=== PATIENT | male | born 1970 | race Caucasian/White ===

== ENCOUNTER 2019-02-26 18:24 | Inpatient (IN) | payer OTHER ==
[2019-02-26] MEDS ORDERED: ASPIRIN 81 MG CHEWABLE TABLETS PO ONE (18:27)
--- NOTE | 2019-02-26 18:27 | PDOC ---
Rapid Medical Evaluation Time Seen by Provider: 02/26/19 18:26 Medical Evaluation: 02/26/19 18:26 HPI: CP and SOB since last night PE: No gross deficits ORDERS: Cardiac w/u Discharge Disposition - Diagnosis Chest pain - Referrals - Patient Instructions - Post Discharge Activity
[2019-02-26 19:06] LABS: BASO % 0.4 % (0-2.0); EOS % 1.3 % (0-4.5); HEMOGLOBIN 15.7 GM/dL (11.7-16.9); LYMPH % 23.1 % (8-40); MCH 30.3 pg (25.7-33.7); MCHC 33.4 g/dl (32.0-35.9); MEAN CELL VOLUME 90.8 fl (80-96); MONO % 9.8 % (3.8-10.2); NEUT % 65.4 % (42.8-82.8); PLATELET COUNT 223 K/MM3 (134-434); RBC 5.18 M/mm3 (4.00-5.60); RDW 12.6 % (11.9-15.9); WHITE BLOOD COUNT 9.4 K/mm3 (4.0-10.0)
[2019-02-26] MEDS ORDERED: ASPIRIN 81 MG CHEWABLE TABLETS ONE (19:17)
[2019-02-26 19:37] LABS: ALBUMIN 4.2 g/dl (3.4-5.0); ALK PHOS 111 U/L (45-117); ANION GAP 9 MMOL/L (8-16); BILIRUBIN,TOTAL 0.3 mg/dL (0.2-1); BLOOD UREA NITROGEN 20.6 mg/dL (7-18); CALCIUM 9.1 mg/dL (8.5-10.1); CHLORIDE 100 mmol/L (98-107); CO2 26 mmol/L (21-32); GLUCOSE,RANDOM 286 mg/dL (74-106); POTASSIUM 4.3 mmol/L (3.5-5.1); SGOT/AST 28 U/L (15-37); SGPT/ALT 70 U/L (13-61); SODIUM 135 mmol/L (136-145)
--- NOTE | 2019-02-26 19:45 | PDOC ---
Attending Attestation - Resident Resident Name: Emma Cook - ED Attending Attestation I have performed the following: I have examined & evaluated the patient, The case was reviewed & discussed with the resident, I agree w/resident's findings & plan - Medical Decision Making 02/26/19 21:35 CXR normal; EKG NSR; with PVCs 02/26/19 21:37 Heart Score/ECG Review - History History: Moderately suspicious - Electrocardiogram EKG: Normal - Age Age: 45-65 - Risk Factors Risk Factors Heart Score: Yes Hx Hypertension, Yes Hx Diabetes, Yes Positive family hx of cardiac disease, Yes Hx Obesity Based on the list above the patient has:: >/=3 risk factors or Hx atherosclerotic disease - Troponin Troponin: </= normal limit - Score Heart Score - Total: 4
--- NOTE | 2019-02-26 21:20 | PDOC ---
Attending Attestation - ED Attending Attestation I have performed the following: I have examined & evaluated the patient, The case was reviewed & discussed with the resident, I agree w/resident's findings & plan
--- NOTE | 2019-02-26 23:15 | HP ---
CHIEF COMPLAINT: Chest pain PCP: Adeline Membreno HISTORY OF PRESENT ILLNESS: Patient is a 48 year old male with history of hypertension hyperlipidemia, diabetes mellitus (non insulin dependent), cervical osteoarthritis presents with complaint of chest pressure that is right sided and radiates up to his neck. Endorses symptoms began yesterday evening while he was resting in bed. Admits associated palpitations. Denies associated shortness of breath. Chest pressure not associated with deep breaths. Further, endorses separate sharper, right sided chest pressure that radiates up his neck. Denies prior occurrence of similar symptoms. Denies syncope, trauma, subjective fevers, chills, shortness of breath, nausea, vomiting. ER course was notable for: (1) EKG reveals sinus tahycardia with premature supraventricular complexes, at 108BPM. (2) Initial troponin 0,02 (3) Recent Travel: PAST MEDICAL HISTORY: hypertension hyperlipidemia, diabetes mellitus, cervical osteoarthritis PAST SURGICAL HISTORY: cervical spine surgery (4 years ago), appendectomy 20 years ago, ?melanoma removal. FAMILY HISTORY -Father from [place] in his 40s -Mother- stroke Social History: [place], independent in activities of daily living. Smoking: former smoker; quit 8 years ago. 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 Absent: syncope, palpitations, irregular heart rate, lightheadedness, peripheral edema RESPIRATORY: Absent: cough, shortness of breath, dyspnea with exertion, orthopnea, wheezing, stridor, hemoptysis GASTROINTESTINAL: Absent: abdominal pain, abdominal distension, nausea, vomiting, diarrhea, constipation, melena, hematochezia GENITOURINARY: Absent: dysuria, frequency, urgency, hesitancy, hematuria, flank pain, genital pain MUSCULOSKELETAL: Absent: myalgia, arthralgia, joint swelling, back pain, neck pain SKIN: Absent: rash, itching, pallor HEMATOLOGIC/IMMUNOLOGIC: Absent: easy bleeding, easy bruising, lymphadenopathy, frequent infections ENDOCRINE: Absent: unexplained weight gain, unexplained weight loss, heat intolerance, cold intolerance NEUROLOGIC: Absent: headache, focal weakness or paresthesias, dizziness, unsteady gait, seizure, mental status changes, bladder or bowel incontinence PSYCHIATRIC: Absent: anxiety, depression, suicidal or homicidal ideation, hallucinations. PHYSICAL EXAMINATION Vital Signs - 24 hr 02/26/19 18:25 Temperature 98.5 F Pulse Rate 100 H Respiratory 18 Rate Blood Pressure 179/90 H O2 Sat by Pulse 99 Oximetry (%) GENERAL: Awake, alert, and fully oriented, in no acute distress. HEAD: Normal with no signs of trauma. EYES: Pupils equal, round and reactive to light, extraocular movements intact, sclera anicteric, conjunctiva clear. No lid lag. EARS, NOSE, THROAT: Ears normal, nares patent, oropharynx clear without exudates. Moist mucous membranes. NECK: Normal range of motion, supple without lymphadenopathy, JVD, or masses. LUNGS: Breath sounds equal, clear to auscultation bilaterally. No wheezes, and no crackles. No accessory muscle use. HEART: Regular rate and rhythm, normal S1 and S2 without murmur, rub or gallop. ABDOMEN: Obese abdomen. Soft, not distended. Tender to deep palpation at epigastrum. Normoactive bowel sounds, no guarding, no rebound, no masses. MUSCULOSKELETAL: Normal range of motion at all joints. No bony deformities or tenderness. No CVA tenderness. EXTREMITIES: 2+ pulses, warm, well-perfused. No cyanosis. No clubbing. No peripheral edema. NEUROLOGICAL: Cranial nerves II-XII intact. Normal speech. Normal gait. PSYCHIATRIC: Cooperative. Good eye contact. Appropriate mood and affect. SKIN: Warm, dry, normal turgor, no rashes or lesions noted, normal capillary refill. Laboratory Results - last 24 hr 02/26/19 02/26/19 02/26/19 18:37 18:37 18:37 WBC 9.4 RBC 5.18 Hgb 15.7 Hct 47.0 MCV 90.8 MCH 30.3 MCHC 33.4 RDW 12.6 Plt Count 223 MPV 10.0 Absolute Neuts (auto) 6.1 Neutrophils % 65.4 Lymphocytes % 23.1 Monocytes % 9.8 Eosinophils % 1.3 Basophils % 0.4 Nucleated RBC % 0 Sodium 135 L Potassium 4.3 Chloride 100 Carbon Dioxide 26 Anion Gap 9 BUN 20.6 H Creatinine 1.0 Est GFR (CKD-EPI)AfAm 101.26 Est GFR (CKD-EPI)NonAf 87.37 Random Glucose 286 H Calcium 9.1 Magnesium 2.0 Total Bilirubin 0.3 AST 28 ALT 70 H Alkaline Phosphatase 111 Creatine Kinase 205 Creatine Kinase Index 1.1 CK-MB (CK-2) 2.3 Troponin I < 0.02 Total Protein 7.0 Albumin 4.2 ASSESSMENT/PLAN: Patient is a 48 year old male with history of hypertension hyperlipidemia, diabetes mellitus (non insulin dependent), cervical osteoarthritis presents with complaint of chest pressure. Unstable angina -Will evaluate for ACS; EKG reveals sinus tahycardia with premature supraventricular complexes, at 108BPM. -Initial troponin 0,02. Will trend -Patient loaded with Aspirin in ED. Will load Plavix 300mg PO, and anticoagulate with Lovenox 100mg Q12H subq STAT -Follow D-Dimer. Low WELLS score -Duplex bilateral lower extremities to evaluate for DVT. Patient did endorse lower extremity cramping earlier today. -Cardiac telemetry monitoring -Cardiac transthoracic ECHO -Case discussed with Dr. Bazan (covering for Dr Villar) recommendations appreciated. -Continue home Aspirin 81mg PO daily Hypertension -Continue home Valsartan, Amlodipine Hyperlipidemia -Continue home Atorvastatin. Increased to 40mg PO HS. -Fasting lipid panel Anxiety, depression -Continue home Sertaline Diabetes mellitus -HbA1c -Hold home hypoglycemics. Initiate Insulin sliding scale -Fingerstick blood glucose monitoring. FEN -IV normal saline at 100mL/ hour -Follow BMP -NPO, pending cardiology evaluation Prophylaxis -Therapeutic dose Lovenox 100mg subq Q12 hours Disposition Admit to Telemetry floor Visit type - Emergency Visit Emergency Visit: Yes ED Registration Date: 02/27/19 Care time: The patient presented to the Emergency Department on the above date and was hospitalized for further evaluation of their emergent condition. - New Patient This patient is new to me today: Yes Date on this admission: 02/27/19 - Critical Care Critical Care patient: No ATTENDING PHYSICIAN STATEMENT I saw and evaluated the patient. I reviewed the resident's note and discussed the case with the resident. I agree with the resident's findings and plan as documented. SUBJECTIVE: OBJECTIVE: ASSESSMENT AND PLAN:
[2019-02-26] MEDS ORDERED: SODIUM CHLORIDE 1,000 ML IV SCH (23:30)
[2019-02-26] MEDS ORDERED: INSULIN (NOVOLOG) ASPART 100 UNITS/ML 10ML VIAL ONE ×2 (23:44→23:49)
[2019-02-27] MEDS: INSULIN SLIDING SCALE (NOVOLOG) 1 VIAL SQ SCH ×4 (00:19→17:18)
--- NOTE | 2019-02-27 01:14 | PN ---
Teaching Attending Note Name of Resident: Josh Armenta ATTENDING PHYSICIAN STATEMENT I saw and evaluated the patient. I reviewed the resident's note and discussed the case with the resident. I agree with the resident's findings and plan as documented. SUBJECTIVE: 48 year old male with history of hypertension, hyperlipidemia, Uncontrolled diabetes mellitus presents, Positive family history of disease in father, complaining of Substernal Chest pain which radiates up to his neck which started 1 day ago when patient was in his bed. Says chest pain is persistent and and has not subsided rates pain as low on pain scale and, substernal. Denied any significant shortness of breath, nausea, or vomiting or trauma to chest. Initial troponin in the emergency room was negative. OBJECTIVE: Last Vital Signs Temp Pulse Resp BP Pulse Ox 98.5 F 100 H 18 179/90 H 99 02/26/19 18:25 02/26/19 18:25 02/26/19 18:25 02/26/19 18:25 02/26/19 18:25 GENERAL: Well developed, well nourished. Awake and alert. No acute distress. HEENT: Normocephalic, atraumatic. PERRLA, EOMI. No conjunctival pallor. Sclera are non- icteric. Moist mucous membranes. Oropharynx is clear. NECK: Supple. Full ROM. No JVD. Carotid pulses 2+ and symmetric, without bruits. No thyromegaly. No lymphadenopathy. CARDIOVASCULAR: Regular rate and rhythm. No murmurs, rubs, or gallops. Distal pulses are 2+ and symmetric. PULMONARY: No evidence of respiratory distress. Lungs clear to auscultation bilaterally. No wheezing, rales or rhonchi. ABDOMINAL: Soft. Non-tender. Non-distended. No rebound or guarding. No organomegaly. Normoactive bowel sounds. MUSCULOSKELETAL Normal range of motion at all joints. No bony deformities or tenderness. No CVA tenderness. EXTREMITIES: No cyanosis. No clubbing. No edema. No calf tenderness. SKIN: Warm and dry. Normal capillary refill. No rashes. No jaundice. PSYCHIATRIC: Cooperative. Good eye contact. Appropriate mood and affect. Abnormal Lab Results 02/26/19 18:37 Sodium 135 L BUN 20.6 H Random Glucose 286 H ALT 70 H Imaging studies reviewed EKG reveals sinus tahycardia with premature supraventricular complexes ASSESSMENT AND PLAN: 48-year-old male with Unstable angina. Troponin was negative, EKG was not suggestive of ischemia. D-dimer was sent and was negative. Admit to telemetry Treat with therapeutic dose of Lovenox, dose of clopidogrel and aspirin Trend troponins Transthoracic echo Cardiology consult #Uncontrolled hypertension Continue with home dose of losartan, amlodipine, titrate as needed to achieve blood pressure control #Diabetes mellitusuncontrolled, significant hyperglycemia is noted NovoLog sliding scale, basal insulin, Lipitor home dose, A1c, diabetic diet #Borderline pseudohyponatremia secondary to hyperglycemia #DVT prophylaxisheparin subcutaneously
--- NOTE | 2019-02-27 01:26 | PDOC ---
History of Present Illness - General Chief Complaint: Chest Pain Stated Complaint: CHEST PAIN Time Seen by Provider: 02/26/19 18:26 - History of Present Illness Initial Comments: 02/27/19 00:54 48 yo M PMH HTN, NIDDM, presenting with chest pain. Reports that it began last night, 3/10, fluttery chest pain, mild SOB. Worsened to 6/10 pain today. Has never had this type of pain before, but notes that his family has cardiac history. His father had a heart attack at 48. Denies abd pain, N/V, diaphoresis, fevers/chills, constipation/diarrhea, CASTILLO. Past History - Past Medical History Allergies/Adverse Reactions: Allergies Allergy/AdvReac Type Severity Reaction Status Date / Time No Known Allergies Allergy Verified 02/26/19 18:28 Home Medications: Ambulatory Orders Amlodipine Besylate 5 mg PO DAILY 02/26/19 Glipizide [Glipizide ER] 5 mg PO DAILY 02/26/19 Metformin HCl [Glucophage] 1,000 mg PO BID 02/26/19 Pioglitazone HCl 15 mg PO DAILY 02/26/19 Sertraline HCl 50 mg PO DAILY 02/26/19 Valsartan 320 mg PO DAILY 02/26/19 Atorvastatin Ca [Lipitor] 20 mg PO HS #30 tablet 03/01/19 COPD: No Diabetes: Yes HTN: Yes - Psycho Social/Smoking Cessation Hx Smoking History: Never smoked Review of Systems - Review of Systems Comments:: 02/27/19 02:21 GENERAL/CONSTITUTIONAL: No fever or chills. No weakness. HEAD, EYES, EARS, NOSE AND THROAT: No change in vision. No ear pain or discharge. No sore throat. CARDIOVASCULAR: Mild chest pain with shortness of breath. RESPIRATORY: No cough, wheezing, or hemoptysis. GASTROINTESTINAL: No nausea, vomiting, diarrhea or constipation. GENITOURINARY: No dysuria, frequency, or change in urination. MUSCULOSKELETAL: No joint or muscle swelling or pain. No neck or back pain. SKIN: No rash NEUROLOGIC: No headache, vertigo, loss of consciousness, or change in strength/ sensation. ENDOCRINE: No increased thirst. No abnormal weight change. HEMATOLOGIC/LYMPHATIC: No anemia, easy bleeding, or history of blood clots. ALLERGIC/IMMUNOLOGIC: No hives or skin allergy *Physical Exam - Vital Signs Last Vital Signs Temp Pulse Resp BP Pulse Ox 98.5 F 100 H 18 179/90 H 99 02/26/19 18:25 02/26/19 18:25 02/26/19 18:25 02/26/19 18:25 02/26/19 18:25 - Physical Exam 02/27/19 02:21 Gen: well-developed, well-nourished, NAD Neuro: AAOX4, CN II-XII intact, FTN intact, EOMI, PERRLA, 5/5 strength, SILT HEENT: atraumatic, normocephalic, dry mucous membranes Neck: trachea midline, supple CV: regular rate, regular rhythm, no murmurs, rubs, or gallops Pulm: CTA b/l, no wheezing Abd: soft, non-distended, non-tender MSK: full ROM, intact pulses Extr: no edema, no deformities Skin: warm, dry ED Treatment Course - LABORATORY CBC & Chemistry Diagram: 03/01/19 05:30 03/01/19 05:30 - ADDITIONAL ORDERS Additional order review: Laboratory Results 02/26/19 02/26/19 02/26/19 23:32 18:37 18:37 Sodium 135 L Potassium 4.3 Chloride 100 Carbon Dioxide 26 Anion Gap 9 BUN 20.6 H Creatinine 1.0 Est GFR (CKD-EPI)AfAm 101.26 Est GFR (CKD-EPI)NonAf 87.37 POC Glucometer 222 Random Glucose 286 H Calcium 9.1 Magnesium 2.0 Total Bilirubin 0.3 AST 28 ALT 70 H Alkaline Phosphatase 111 Creatine Kinase 205 Creatine Kinase Index 1.1 CK-MB (CK-2) 2.3 Troponin I < 0.02 Total Protein 7.0 Albumin 4.2 02/26/19 02/26/19 23:32 18:37 RBC 5.18 MCV 90.8 MCHC 33.4 RDW 12.6 MPV 10.0 Neutrophils % 65.4 Lymphocytes % 23.1 Monocytes % 9.8 Eosinophils % 1.3 Basophils % 0.4 POC Glucometer 222 - Medications Given in the ED: ED Medications Discontinued Medications Generic Name Dose Route Start Last Admin Trade Name Freq PRN Reason Stop Dose Admin Aspirin 162 mg 02/26/19 18:27 02/26/19 19:20 Asa - PO 02/26/19 18:28 162 mg ONCE ONE Administration Medical Decision Making - Medical Decision Making 02/26/19 Concern for potential ACS. Cardiac workup performed and negative. EKG NSR without ischemic changes. However, considering history and risk factors, will admit to tele obs. Discharge - Discharge Information Problems reviewed: Yes Clinical Impression/Diagnosis: Chest pain Condition: Good Disposition: HOME - Follow up/Referral - Patient Discharge Instructions - Post Discharge Activity
[2019-02-27 01:40] LABS: INR 0.92 (0.83-1.09); PROTHROMBIN TIME (PATIENT) 10.8 SEC (9.7-13.0)
[2019-02-27 01:43] LABS: ACTIVATED PTT 31.3 SECONDS (25.2-36.5)
[2019-02-27] MEDS ORDERED: NITROGLYCERIN SUBLINGUAL 1/150 0.4 MG TAB SL ONE (03:28)
[2019-02-27] MEDS ORDERED: CLOPIDOGREL BISULFATE 300 MG TABLET PO ONE (03:29)
[2019-02-27] MEDS ORDERED: ENOXAPARIN NA (PORCINE) 100 MG/1 ML DISP.SYRIN SQ ONE (03:29)
[2019-02-27 04:31] VITALS: BMI 34.7
[2019-02-27 07:05] LABS: HEMATOCRIT 42.7 % (35.4-49); HEMOGLOBIN 14.4 GM/dL (11.7-16.9); MCH 30.4 pg (25.7-33.7); MCHC 33.7 g/dl (32.0-35.9); MEAN CELL VOLUME 90.3 fl (80-96); MEAN PLT VOLUME 9.7 fl (7.5-11.1); PLATELET COUNT 185 K/MM3 (134-434); RBC 4.73 M/mm3 (4.00-5.60); RDW 12.7 % (11.9-15.9); WHITE BLOOD COUNT 6.1 K/mm3 (4.0-10.0)
[2019-02-27 07:18] LABS: ALBUMIN 3.7 g/dl (3.4-5.0); BILIRUBIN,TOTAL 0.6 mg/dL (0.2-1); BLOOD UREA NITROGEN 22.3 mg/dL (7-18); CALCIUM 8.5 mg/dL (8.5-10.1); CREATININE 0.7 mg/dL (0.55-1.3); MAGNESIUM 1.9 mg/dL (1.8-2.4); PHOSPHOROUS 4.8 mg/dL (2.5-4.9); POTASSIUM 3.9 mmol/L (3.5-5.1); TOT PROT 6.2 g/dl (6.4-8.2)
[2019-02-27 07:26] LABS: CHOLESTEROL 145 mg/dL (50-200); HDL CHOLESTEROL 34 mg/dL (40-60); LDL CHOLESTEROL (ONLY SJRH) 87 mg/dL (5-100); TRIGLYCERIDES 194 mg/dL (0-150)
[2019-02-27] MEDS ORDERED: PNEUMOC 13-VAL CONJ-DIP CRM/PF 0.5 ML DISP.SYRIN IM ONE (08:00)
[2019-02-27] MEDS: VALSARTAN 160 MG TABLET (UD) PO SCH (09:02)
[2019-02-27] MEDS: amLODIPine BESYLATE 5 MG TABLET (FP) PO SCH (09:02)
[2019-02-27] MEDS: SERTRALINE HCL 50 MG TABLET (FP) PO SCH (09:03)
[2019-02-27] MEDS: ASPIRIN COATED 81 MG TABLET.EC PO SCH (09:03)
--- NOTE | 2019-02-27 09:16 | PN ---
Physical Exam: SUBJECTIVE: Patient seen and examined. He has no complaints. He denies CP, palpitations, SOB. OBJECTIVE: Vital Signs Period Temp Pulse Resp BP Sys/Herron Pulse Ox Last 24 Hr 97.8 F-98.5 F 60-100 18-18 106-179/59-90 95-99 GENERAL: The patient is awake, alert, and fully oriented, in no acute distress. LUNGS: Breath sounds equal, clear to auscultation bilaterally, no wheezes, no crackles, no accessory muscle use. HEART: Regular rate and rhythm, S1, S2 without murmur, rub or gallop. ABDOMEN: Obese, soft, nontender, nondistended, normoactive bowel sounds, no guarding, no rebound, no hepatosplenomegaly, no masses. EXTREMITIES: 2+ pulses, warm, well-perfused, no edema. Laboratory Results - last 24 hr 02/26/19 02/26/19 02/26/19 18:37 18:37 18:37 WBC 9.4 RBC 5.18 Hgb 15.7 Hct 47.0 MCV 90.8 MCH 30.3 MCHC 33.4 RDW 12.6 Plt Count 223 MPV 10.0 Absolute Neuts (auto) 6.1 Neutrophils % 65.4 Lymphocytes % 23.1 Monocytes % 9.8 Eosinophils % 1.3 Basophils % 0.4 Nucleated RBC % 0 PT with INR INR PTT (Actin FS) D-Dimer Sodium 135 L Potassium 4.3 Chloride 100 Carbon Dioxide 26 Anion Gap 9 BUN 20.6 H Creatinine 1.0 Est GFR (CKD-EPI)AfAm 101.26 Est GFR (CKD-EPI)NonAf 87.37 POC Glucometer Random Glucose 286 H Hemoglobin A1c % Calcium 9.1 Phosphorus Magnesium 2.0 Total Bilirubin 0.3 AST 28 ALT 70 H Alkaline Phosphatase 111 Creatine Kinase 205 Creatine Kinase Index 1.1 CK-MB (CK-2) 2.3 Troponin I < 0.02 B-Natriuretic Peptide Total Protein 7.0 Albumin 4.2 Triglycerides Cholesterol Total LDL Cholesterol HDL Cholesterol TSH Thyroxine (T4) 02/26/19 02/27/19 02/27/19 23:32 00:30 00:30 WBC RBC Hgb Hct MCV MCH MCHC RDW Plt Count MPV Absolute Neuts (auto) Neutrophils % Lymphocytes % Monocytes % Eosinophils % Basophils % Nucleated RBC % PT with INR 10.80 INR 0.92 PTT (Actin FS) 31.3 D-Dimer Sodium Potassium Chloride Carbon Dioxide Anion Gap BUN Creatinine Est GFR (CKD-EPI)AfAm Est GFR (CKD-EPI)NonAf POC Glucometer 222 Random Glucose Hemoglobin A1c % Calcium Phosphorus Magnesium Total Bilirubin AST ALT Alkaline Phosphatase Creatine Kinase Creatine Kinase Index CK-MB (CK-2) Troponin I < 0.02 B-Natriuretic Peptide Total Protein Albumin Triglycerides Cholesterol Total LDL Cholesterol HDL Cholesterol TSH Thyroxine (T4) 02/27/19 02/27/19 02/27/19 00:30 05:45 05:45 WBC 6.1 RBC 4.73 Hgb 14.4 Hct 42.7 MCV 90.3 MCH 30.4 MCHC 33.7 RDW 12.7 Plt Count 185 MPV 9.7 Absolute Neuts (auto) Neutrophils % Lymphocytes % Monocytes % Eosinophils % Basophils % Nucleated RBC % PT with INR INR PTT (Actin FS) D-Dimer < 215 Sodium 137 Potassium 3.9 Chloride 103 Carbon Dioxide 26 Anion Gap 8 BUN 22.3 H Creatinine 0.7 Est GFR (CKD-EPI)AfAm 127.53 Est GFR (CKD-EPI)NonAf 110.04 POC Glucometer Random Glucose 219 H Hemoglobin A1c % Calcium 8.5 Phosphorus 4.8 Magnesium 1.9 Total Bilirubin 0.6 AST 28 ALT 60 Alkaline Phosphatase 74 Creatine Kinase Creatine Kinase Index CK-MB (CK-2) Troponin I B-Natriuretic Peptide Total Protein 6.2 L Albumin 3.7 Triglycerides Cholesterol Total LDL Cholesterol HDL Cholesterol TSH 2.34 Thyroxine (T4) 7.9 02/27/19 02/27/19 02/27/19 05:45 05:45 05:45 WBC RBC Hgb Hct MCV MCH MCHC RDW Plt Count MPV Absolute Neuts (auto) Neutrophils % Lymphocytes % Monocytes % Eosinophils % Basophils % Nucleated RBC % PT with INR INR PTT (Actin FS) D-Dimer Sodium Potassium Chloride Carbon Dioxide Anion Gap BUN Creatinine Est GFR (CKD-EPI)AfAm Est GFR (CKD-EPI)NonAf POC Glucometer Random Glucose Hemoglobin A1c % 9.4 H Calcium Phosphorus Magnesium Total Bilirubin AST ALT Alkaline Phosphatase Creatine Kinase 139 Creatine Kinase Index CK-MB (CK-2) Troponin I < 0.02 B-Natriuretic Peptide 19.9 Total Protein Albumin Triglycerides 194 H Cholesterol 145 Total LDL Cholesterol 87 HDL Cholesterol 34 L TSH Thyroxine (T4) 02/27/19 06:12 WBC RBC Hgb Hct MCV MCH MCHC RDW Plt Count MPV Absolute Neuts (auto) Neutrophils % Lymphocytes % Monocytes % Eosinophils % Basophils % Nucleated RBC % PT with INR INR PTT (Actin FS) D-Dimer Sodium Potassium Chloride Carbon Dioxide Anion Gap BUN Creatinine Est GFR (CKD-EPI)AfAm Est GFR (CKD-EPI)NonAf POC Glucometer 210 Random Glucose Hemoglobin A1c % Calcium Phosphorus Magnesium Total Bilirubin AST ALT Alkaline Phosphatase Creatine Kinase Creatine Kinase Index CK-MB (CK-2) Troponin I B-Natriuretic Peptide Total Protein Albumin Triglycerides Cholesterol Total LDL Cholesterol HDL Cholesterol TSH Thyroxine (T4) Active Medications Generic Name Dose Route Start Last Admin Trade Name Freq PRN Reason Stop Dose Admin Amlodipine Besylate 5 mg 02/27/19 10:00 Norvasc - PO DAILY [facility] Aspirin 81 mg 02/27/19 10:00 Ecotrin - PO DAILY [facility] Atorvastatin Calcium 40 mg 02/27/19 22:00 Lipitor - PO HS [facility] Clopidogrel Bisulfate 75 mg 02/27/19 10:00 Plavix - PO DAILY [facility] Enoxaparin Sodium 100 mg 02/27/19 14:00 Lovenox - SQ BID [facility] Sodium Chloride 1,000 mls @ 83 mls/hr 02/26/19 23:30 02/27/19 00:45 Normal Saline - IV 83 mls/hr ASDIR [facility] Administration Insulin Aspart 1 vial 02/26/19 23:30 02/27/19 06:17 Novolog Vial Sliding Scale - SQ Not Given TIDAC [facility] Protocol Pneumococcal Polyvalent Vaccine 0.5 ml 02/27/19 10:00 Pneumovax - IM 02/27/19 10:01 .ONCE ONE Sertraline HCl 50 mg 02/27/19 10:00 Zoloft - PO DAILY [facility] Valsartan 320 mg 02/27/19 10:00 Diovan - PO DAILY [facility] ASSESSMENT/PLAN: This is a 48 year old man with a history of HTN, hyperlipidemia, type 2 DM, depression, anxiety, cervical degenerative disease who presented to the ED with chest pressure. 1. Chest pain - Troponin negative x 3 - D-dimer negative - Venous dopplers of legs negative for DVT - Started on aspirin, Plavix, Lovenox - Will discontinue Lovenox - Continue Lipitor - Await cardiology evaluation and echo 2. HTN - Continue Norvasc, Diovan 3. Hyperlipidemia - Continue Lipitor 4. Type 2 DM - Metformin, glipizide, Actos held - Continue Novolog sliding scale 5. Depression and anxiety - Continue Zoloft Visit type - Emergency Visit Emergency Visit: Yes ED Registration Date: 02/27/19 Care time: The patient presented to the Emergency Department on the above date and was hospitalized for further evaluation of their emergent condition. - New Patient This patient is new to me today: Yes Date on this admission: 02/27/19 - Critical Care Critical Care patient: No - Discharge Referral Referred to [facility] No
--- NOTE | 2019-02-27 09:49 | EKG ---
Test Reason : Blood Pressure : / mmHG Vent. Rate : 108 BPM Atrial Rate : 108 BPM P-R Int : 128 ms QRS Dur : 094 ms QT Int : 340 ms P-R-T Axes : 065 060 044 degrees QTc Int : 455 ms SINUS TACHYCARDIA WITH PREMATURE SUPRAVENTRICULAR COMPLEXES AND WITH OCCASIONAL PREMATURE VENTRICULAR COMPLEXES POSSIBLE LEFT ATRIAL ENLARGEMENT BORDERLINE ECG NO PREVIOUS ECGS AVAILABLE Confirmed by RAINA ZENG MD ([id number]) on 02/27/2019 9:49:18 AM Referred By: Confirmed By:RAINA ZENG MD
--- NOTE | 2019-02-27 09:55 | EKG ---
Test Reason : Blood Pressure : / mmHG Vent. Rate : 065 BPM Atrial Rate : 065 BPM P-R Int : 142 ms QRS Dur : 096 ms QT Int : 400 ms P-R-T Axes : 067 048 054 degrees QTc Int : 416 ms NORMAL SINUS RHYTHM NORMAL ECG WHEN COMPARED WITH ECG OF 26-FEB-2019 18:31, PREMATURE VENTRICULAR COMPLEXES ARE NO LONGER PRESENT PREMATURE SUPRAVENTRICULAR COMPLEXES ARE NO LONGER PRESENT VENT. RATE HAS DECREASED BY 43 BPM Confirmed by RAINA ZENG MD ([id number]) on 02/27/2019 9:54:42 AM Referred By: Mike KINCAID Confirmed By:RAINA ZENG MD
[2019-02-27] MEDS ORDERED: CLOPIDOGREL BISULFATE 75 MG TABLET (FP) PO SCH (10:00)
[2019-02-27] MEDS ORDERED: PNEUMOCOCCAL 23 VACCINE 0.5 ML VIAL IM ONE (10:00)
[2019-02-27] MEDS ORDERED: ENOXAPARIN NA (PORCINE) 40 MG/0.4 ML DISP.SYRIN SQ SCH ×2 (10:00)
--- NOTE | 2019-02-27 13:03 | CON.CARD ---
Consult Consult Specialty:: Cardiology Referred by:: Medicine Reason for Consultation:: chest pain - History of Present Illness Chief Complaint: chest pain History of Present Illness: 48M h/o HTN, HLD, DM, family hx CAD p/w chest pain. Patient of Dr. Villar. Pain ongoing for the last two days, has been constant but a little less today. Not exertional. No dyspnea, orthopnea, edema. - Alcohol/Substance Use Hx Alcohol Use: No - Smoking History Smoking history: Never smoked Home Medications - Allergies Allergies/Adverse Reactions: Allergies Allergy/AdvReac Type Severity Reaction Status Date / Time No Known Allergies Allergy Verified 02/26/19 18:28 - Home Medications Home Medications: Ambulatory Orders Amlodipine Besylate 5 mg PO DAILY 02/26/19 Atorvastatin Ca [Lipitor] 10 mg PO HS 02/26/19 Glipizide [Glipizide ER] 5 mg PO DAILY 02/26/19 Metformin HCl [Glucophage] 1,000 mg PO BID 02/26/19 Pioglitazone HCl 15 mg PO DAILY 02/26/19 Sertraline HCl 50 mg PO DAILY 02/26/19 Valsartan 320 mg PO DAILY 02/26/19 Family Medical History Family Hx Cardiac Disorders: Father Review of Systems - Review of Systems Constitutional: reports: No Symptoms Eyes: reports: No Symptoms HENT: reports: No Symptoms Neck: reports: No Symptoms Cardiovascular: reports: Chest Pain Respiratory: reports: No Symptoms Gastrointestinal: reports: No Symptoms Genitourinary: reports: No Symptoms Musculoskeletal: reports: No Symptoms Integumentary: reports: No Symptoms Neurological: reports: No Symptoms Endocrine: reports: No Symptoms Hematology/Lymphatic: reports: No Symptoms Psychiatric: reports: No Symptoms Vital Signs: Vital Signs Temperature 98.0 F 02/27/19 08:08 Pulse Rate 60 02/27/19 08:08 Respiratory Rate 18 02/27/19 08:08 Blood Pressure 106/59 L 02/27/19 08:08 O2 Sat by Pulse Oximetry (%) 95 02/27/19 08:08 Constitutional: Yes: No Distress, Calm Eyes: Yes: Conjunctiva Clear, EOM Intact HENT: Yes: Atraumatic, Normocephalic Neck: Yes: Supple, Trachea Midline Respiratory: Yes: Regular, CTA Bilaterally Gastrointestinal: Yes: Normal Bowel Sounds, Soft Cardiovascular: Yes: Regular Rate and Rhythm JVD: No Carotid Bruit: No Heart Sounds: Yes: S1, S2 Extremities: No: Cold Edema: No Integumentary: No: Jaundice Neurological: Yes: Alert, Oriented Psychiatric: No: Agitated - Other Data Labs, Other Data: CBC, BMP 02/27/19 05:45 02/27/19 05:45 INR, PTT INR 0.92 (0.83-1.09) 02/27/19 00:30 Troponin, BNP 02/26/19 02/27/19 02/27/19 18:37 00:30 05:45 Troponin I < 0.02 < 0.02 B-Natriuretic Peptide 19.9 02/27/19 05:45 Troponin I < 0.02 B-Natriuretic Peptide Troponin, BNP 02/26/19 02/27/19 02/27/19 18:37 00:30 05:45 Troponin I < 0.02 < 0.02 B-Natriuretic Peptide 19.9 02/27/19 05:45 Troponin I < 0.02 B-Natriuretic Peptide Assessment/Plan EKG 1: sinus tach, PVCs, no ischemic changes EKG 2 : sinus, nl intervals, no ischemic changes tele: sinus, PVCs chest pain - EKG no ischemic changes, trop neg x 2 - less likely ACS, lovenox and clopidogrel dc'ed - continue aspirin, statin - echo and nuclear stress test for further eval given age, risk factors, family hx HTN - improving with home meds DM - manage per primary HLD - cont statin, increased here
[2019-02-27] MEDS ORDERED: ENOXAPARIN NA (PORCINE) 100 MG/1 ML DISP.SYRIN SQ SCH (14:00)
[2019-02-27] MEDS ORDERED: ATORVASTATIN CA 10 MG TABLET (FP) PO SCH (22:00)
[2019-02-27] MEDS: ATORVASTATIN CA 40 MG TABLET (FP) PO SCH (22:26)
[2019-02-28] MEDS: INSULIN SLIDING SCALE (NOVOLOG) 1 VIAL SQ SCH ×3 (06:13→17:23)
[2019-02-28] MEDS: SERTRALINE HCL 50 MG TABLET (FP) PO SCH (09:02)
[2019-02-28] MEDS: amLODIPine BESYLATE 5 MG TABLET (FP) PO SCH (09:02)
[2019-02-28] MEDS: ENOXAPARIN NA (PORCINE) 40 MG/0.4 ML DISP.SYRIN SQ SCH (09:02)
[2019-02-28] MEDS: VALSARTAN 160 MG TABLET (UD) PO SCH (09:02)
[2019-02-28] MEDS: ASPIRIN COATED 81 MG TABLET.EC PO SCH (09:03)
--- NOTE | 2019-02-28 09:06 | PN ---
Teaching Attending Note Name of Resident: Josh Armenta ATTENDING PHYSICIAN STATEMENT I saw and evaluated the patient. I reviewed the resident's note and discussed the case with the resident. I agree with the resident's findings and plan as documented. Seen and examined; please see resident note for further historical information. I personally verified all kerr historical information and exam findings. Personally interpreted all imaging and diagnostics and reviewed appropriate consults. I reviewed all labs and vital signs as per resident note and EMR as documented. I agree with the above assessment and plan unless supplemented by myself in the following. No chest pain, shortness of breath or palpitations noted. Seen by Dr. Bazan yesterday, patient of Dr. Villar. 2 days of chest pain somewhat atypical in nature. Negative troponin x2 and now off Lovenox and clopidogrel while continuing on aspirin and statin. Pending echocardiogram and nuclear stress test given his moderate to high pretest probability secondary to his age, risk factors, and family history. Blood pressure and heart rate remained controlled and he is satting 96% on room air. No issues on telemetry.He is frustrated that the testing cannot be conducted over the weekend and states that he may leave AMA as he wants to close a deal on his house tomorrow. 10 item review of systems completed and is negative aside from history of present illness. VS, labs, imaging reviewed NAD, AAO, resting comfortably in bed. RRR s1/2 no mgr Normal muscle tone, moves all 5 extremities with normal apparent strength Neck is supple, trachea midline, no vishal LN Lungs CTAB with sym expansion NT ND +BS no vishal organomegaly CN2-12 wnl; no FND NC AT EOMI PERRLA Normal mood, appropriate behavior, euthymic affect No skin breakdown or rashes noted EKG from admission reviewed, HI interval is 142, QTc 416 with QRS duration of 09 6 ms. Normal sinus rhythm and normal EKG overall with no ischemic changes compared to the original ER study performed earlier in the day on February 26 No evidence of DVT on the bilateral ultrasound lower extremities. Chest x-ray on admission shows no acute chest pathology with degenerative changes noted alongside lower spinal fusion hardware. Assessment and plan: Patient with moderate to high pretest probability secondary to his risk factors for coronary artery disease presents with chest pain, is pending echocardiogram and nuclear stress test. He is stable on telemetry and remains on the medicine service with cardiology consultation. Problems include: -Acute chest pain, rule out ACS. Follow-up stress test and echocardiogram. EKG , troponins, telemetry negative thus far. Continue on aspirin and statin, no need for Plavix or Lovenox. -Diabetes mellitus, uncontrolled with A1c 9.4%. Suboptimal glucose control ranging from the low to mid 200s overnight and yesterday. We will adjust coverage. -Hypertension, controlled -Hyperlipidemia, triglycerides 194 with HDL low at 34. -Obesity, BMI 34, counseled prior to discharge Full code Disposition is pending the further cardiology testing with echo and nuclear stress test, once this is complete patient will be able to be discharged versus disposition for further procedures/invasive testing.
[2019-02-28] MEDS ORDERED: NITROGLYCERIN SUBLINGUAL 1/150 0.4 MG TAB SL ONE (10:23)
--- NOTE | 2019-02-28 12:22 | PN ---
Progress Note (short form) - Note Progress Note: s: chest pain improving. no dyspnea, dizziness, orthopnea, edema Current Medications Amlodipine Besylate (Norvasc -) 5 mg PO DAILY [facility] Last Admin: 02/28/19 09:02 Dose: 5 mg Aspirin (Ecotrin -) 81 mg PO DAILY [facility] Last Admin: 02/28/19 09:03 Dose: 81 mg Atorvastatin Calcium (Lipitor -) 40 mg PO HS [facility] Last Admin: 02/27/19 22:26 Dose: 40 mg Enoxaparin Sodium (Lovenox -) 40 mg SQ DAILY [facility] Last Admin: 02/28/19 09:02 Dose: 40 mg Insulin Aspart (Novolog Vial Sliding Scale -) 1 vial SQ TIDAC [facility]; Protocol Last Admin: 02/28/19 11:09 Dose: 8 units Sertraline HCl (Zoloft -) 50 mg PO DAILY [facility] Last Admin: 02/28/19 09:02 Dose: 50 mg Valsartan (Diovan -) 320 mg PO DAILY [facility] Last Admin: 02/28/19 09:02 Dose: 320 mg Vital Signs Period Temp Pulse Resp BP Sys/Herron Pulse Ox Last 24 Hr 97.6 F-98.2 F 59-77 18-18 105-127/52-76 96-96 Constitutional: Yes: No Distress, Calm Eyes: Yes: Conjunctiva Clear, EOM Intact HENT: Yes: Atraumatic, Normocephalic Neck: Yes: Supple, Trachea Midline Respiratory: Yes: Regular, CTA Bilaterally Gastrointestinal: Yes: Normal Bowel Sounds, Soft Cardiovascular: Yes: Regular Rate and Rhythm JVD: No Carotid Bruit: No Heart Sounds: Yes: S1, S2 Extremities: No: Cold Edema: No Integumentary: No: Jaundice Neurological: Yes: Alert, Oriented Psychiatric: No: Agitated Assessment/Plan EKG 1: sinus tach, PVCs, no ischemic changes EKG 2 : sinus, nl intervals, no ischemic changes tele: sinus, PVCs chest pain - EKG no ischemic changes, trop neg x 2 - less likely ACS, lovenox and clopidogrel dc'ed - continue aspirin, statin - echo and nuclear stress test for further eval given age, risk factors, family hx HTN - improving with home meds DM - manage per primary HLD - cont statin, increased here
--- NOTE | 2019-02-28 13:16 | PN ---
Physical Exam: SUBJECTIVE: Patient seen and examined at bedside. Admits lingering chest pain, that seems to have resolved with sublingual Nitro x1. OBJECTIVE: Vital Signs Period Temp Pulse Resp BP Sys/Herron Pulse Ox Last 24 Hr 97.6 F-98.2 F 59-77 18-18 105-127/52-76 96-96 GENERAL: Awake, alert, and fully oriented, in no acute distress. HEAD: Normal with no signs of trauma. EYES: Pupils equal, round and reactive to light, extraocular movements intact, sclera anicteric, conjunctiva clear. No lid lag. EARS, NOSE, THROAT: Ears normal, nares patent, oropharynx clear without exudates. Moist mucous membranes. NECK: Normal range of motion, supple without lymphadenopathy, JVD, or masses. LUNGS: Breath sounds equal, clear to auscultation bilaterally. No wheezes, and no crackles. No accessory muscle use. HEART: Regular rate and rhythm, normal S1 and S2 without murmur, rub or gallop. ABDOMEN: Obese abdomen. Soft, not distended. Tender to deep palpation at epigastrum. Normoactive bowel sounds, no guarding, no rebound, no masses. MUSCULOSKELETAL: Normal range of motion at all joints. No bony deformities or tenderness. No CVA tenderness. EXTREMITIES: 2+ pulses, warm, well-perfused. No cyanosis. No clubbing. No peripheral edema. NEUROLOGICAL: Cranial nerves II-XII intact. Normal speech. Normal gait. PSYCHIATRIC: Cooperative. Good eye contact. Appropriate mood and affect. SKIN: Warm, dry, normal turgor, no rashes or lesions noted, normal capillary refill. Laboratory Results - last 24 hr 02/27/19 02/27/19 02/28/19 17:12 21:15 06:12 POC Glucometer 246 232 220 Troponin I 02/28/19 02/28/19 10:53 11:06 POC Glucometer 378 Troponin I < 0.02 Active Medications Generic Name Dose Route Start Last Admin Trade Name Freq PRN Reason Stop Dose Admin Amlodipine Besylate 5 mg 02/27/19 10:00 02/28/19 09:02 Norvasc - PO 5 mg DAILY ASHLIE Administration Aspirin 81 mg 02/27/19 10:00 02/28/19 09:03 Ecotrin - PO 81 mg DAILY ASHLIE Administration Atorvastatin Calcium 40 mg 02/27/19 22:00 02/27/19 22:26 Lipitor - PO 40 mg HS ASHLIE Administration Enoxaparin Sodium 40 mg 02/28/19 10:00 02/28/19 09:02 Lovenox - SQ 40 mg DAILY ASHLIE Administration Insulin Aspart 1 vial 02/26/19 23:30 02/28/19 11:09 Novolog Vial Sliding Scale - SQ 8 units TIDAC ASHLIE Administration Protocol Sertraline HCl 50 mg 02/27/19 10:00 02/28/19 09:02 Zoloft - PO 50 mg DAILY ASHLIE Administration Valsartan 320 mg 02/27/19 10:00 02/28/19 09:02 Diovan - PO 320 mg DAILY ASHLIE Administration ASSESSMENT/PLAN: Patient is a 48 year old male with history of hypertension hyperlipidemia, diabetes mellitus (non insulin dependent), cervical osteoarthritis presents with complaint of chest pressure. Unstable angina -Will evaluate for ACS; EKG reveals sinus tahycardia with premature supraventricular complexes, at 108BPM. -Initial troponin 0,02 x3. EKG -Aspirin 81 mg PO daily -Cardiac telemetry monitoring -Cardiac transthoracic ECHO -Stress test tomorow AM -Case discussed with Dr. Bazan (covering for Dr Villar) recommendations appreciated. -Continue home Aspirin 81mg PO daily Hypertension -Continue home Valsartan, Amlodipine Hyperlipidemia -Continue home Atorvastatin. Increased to 40mg PO HS. -ASCVD less than 5%; may not require upon discharge, however will follow cardiac workup results. Anxiety, depression -Continue home Sertaline Diabetes mellitus -HbA1c -Hold home hypoglycemics. Initiate Insulin sliding scale -Fingerstick blood glucose monitoring. FEN -IV normal saline at 100mL/ hour -Follow BMP -Diabetic, sodium modified diet. Prophylaxis - Lovenox 40mg subq daily Disposition -Continue care on Telemetry floor. Visit type - Emergency Visit Emergency Visit: Yes ED Registration Date: 02/27/19 Care time: The patient presented to the Emergency Department on the above date and was hospitalized for further evaluation of their emergent condition. - New Patient This patient is new to me today: No - Critical Care Critical Care patient: No - Discharge Referral Referred to [facility] Med P.C.: No ATTENDING PHYSICIAN STATEMENT I saw and evaluated the patient. I reviewed the resident's note and discussed the case with the resident. I agree with the resident's findings and plan as documented. SUBJECTIVE: OBJECTIVE: ASSESSMENT AND PLAN:
--- NOTE | 2019-02-28 13:18 | EKG ---
Test Reason : Blood Pressure : / mmHG Vent. Rate : 077 BPM Atrial Rate : 077 BPM P-R Int : 136 ms QRS Dur : 096 ms QT Int : 362 ms P-R-T Axes : 071 055 048 degrees QTc Int : 409 ms NORMAL SINUS RHYTHM NORMAL ECG WHEN COMPARED WITH ECG OF 27-FEB-2019 09:43, NO SIGNIFICANT CHANGE WAS FOUND Confirmed by RAINA ZENG MD ([id number]) on 02/28/2019 1:18:06 PM Referred By: Adrian FUENTES Confirmed By:RAINA ZENG MD
[2019-02-28] MEDS ORDERED: INSULIN (NOVOLOG) ASPART 100 UNITS/ML 10ML VIAL ONE (17:15)
[2019-02-28] MEDS: ATORVASTATIN CA 40 MG TABLET (FP) PO SCH (22:05)
[2019-03-01] MEDS: INSULIN SLIDING SCALE (NOVOLOG) 1 VIAL SQ SCH ×2 (06:20→14:09)
[2019-03-01 07:04] LABS: HEMATOCRIT 43.6 % (35.4-49); HEMOGLOBIN 15.1 GM/dL (11.7-16.9); MCH 31.2 pg (25.7-33.7); MCHC 34.6 g/dl (32.0-35.9); MEAN CELL VOLUME 90.1 fl (80-96); MEAN PLT VOLUME 9.8 fl (7.5-11.1); PLATELET COUNT 175 K/MM3 (134-434); RBC 4.83 M/mm3 (4.00-5.60); RDW 12.5 % (11.9-15.9); WHITE BLOOD COUNT 8.4 K/mm3 (4.0-10.0)
[2019-03-01 08:49] LABS: ALBUMIN 3.8 g/dl (3.4-5.0); BILIRUBIN,TOTAL 0.5 mg/dL (0.2-1); BLOOD UREA NITROGEN 14.6 mg/dL (7-18); CALCIUM 8.5 mg/dL (8.5-10.1); CREATININE 0.7 mg/dL (0.55-1.3); TOT PROT 6.4 g/dl (6.4-8.2)
[2019-03-01] MEDS ORDERED: REGADENOSON 0.4 MG/5 ML PRE-FILLED SYRINGE IVPUSH ONE ×2 (09:15→11:10)
--- NOTE | 2019-03-01 11:54 | ECHO ---
Name: DEE BRYANT Exam:Adult Echocardiogram Study Date: 03/01/2019 08:47 AM Age: 48 yrs Height: 67 in Weight: 220 lb BSA: 2.1 m2 MMode/2D Measurements & Calculations IVSd: 1.1 cm Ao root diam: 2.6 cm LVIDd: 4.9 cm LA dimension: 4.1 cm LVIDs: 3.5 cm LVPWd: 1.1 cm LVPWs: 1.4 cm EDV(Teich): 112.8 ml ESV(Teich): 49.6 ml LVOT diam: 2.2 cm RV S Ag: 10.2 cm/sec Doppler Measurements & Calculations MV E max ag: 87.9 cm/sec Ao V2 max: 121.6 cm/sec MV A max ag: 55.3 cm/sec Ao max P.9 mmHg MV E/A: 1.6 MV dec time: 0.18 sec RABIA(V,D): 2.8 cm2 LV V1 max P.2 mmHg PA V2 max: 150.7 cm/sec LV V1 max: 89.8 cm/sec PA max P.2 mmHg Med Peak E' Ag: 10.1 cm/sec Med E/e': 8.7 Lat Peak E' Ag: 12.2 cm/sec Lat E/e': 7.2 Procedure A complete two-dimensional transthoracic echocardiogram was performed (2D, M-mode, Doppler and color flow Doppler). Technically limited study. Left Ventricle The left ventricle is normal in size. Left ventricular systolic function is normal. Ejection Fraction = 55- 60%. No regional wall motion abnormalities noted. Right Ventricle The right ventricle is normal size. The right ventricular systolic function is normal. Atria The left atrium is mildly dilated. Right atrial size is normal. Mitral Valve The mitral valve is normal in structure and function. There is mild mitral regurgitation. Tricuspid Valve The tricuspid valve is normal in structure and function. No tricuspid regurgitation. Aortic Valve The aortic valve is normal in structure and function. No aortic regurgitation is present. Pulmonic Valve The pulmonic valve is not well visualized. Great Vessels The aortic root is normal size. Pericardium/Pleura There is no pericardial effusion. Interpretation Summary Technically limited study The left ventricle is normal in size. Left ventricular systolic function is normal. No regional wall motion abnormalities noted. Ejection Fraction = 55-60%. The right ventricular systolic function is normal. The left atrium is mildly dilated. Right atrial size is normal. There is mild mitral regurgitation. There is no pericardial effusion. Wiley Kilpatrick MD 03/01/2019 11:54 AM
[2019-03-01] MEDS: amLODIPine BESYLATE 5 MG TABLET (FP) PO SCH (14:08)
[2019-03-01] MEDS: VALSARTAN 160 MG TABLET (UD) PO SCH (14:08)
[2019-03-01] MEDS: ASPIRIN COATED 81 MG TABLET.EC PO SCH (14:09)
[2019-03-01] MEDS: ENOXAPARIN NA (PORCINE) 40 MG/0.4 ML DISP.SYRIN SQ SCH (14:09)
[2019-03-01] MEDS: SERTRALINE HCL 50 MG TABLET (FP) PO SCH (14:13)
--- NOTE | 2019-03-01 14:50 | PN ---
Teaching Attending Note ATTENDING PHYSICIAN STATEMENT I saw and evaluated the patient. I reviewed the resident's note and discussed the case with the resident. I agree with the resident's findings and plan as documented. Seen and examined; please see resident note for further historical information. I personally verified all kerr historical information and exam findings. Personally interpreted all imaging and diagnostics and reviewed appropriate consults. I reviewed all labs and vital signs as per resident note and EMR as documented. I agree with the above assessment and plan unless supplemented by myself in the following. Patient seen and examined, denies any further chest pain. He had his echocardiogram completed and his stress test completed. Echocardiogram has been read, stress test results are pending. 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 He was counseled extensively regarding the overall trajectory and he is somewhat willing to stay , we will try to facilitate a quicker reading of the stress test but informed him that there is only so much that can be done in a utilitarian setting such as a hospital. 10 item review of systems completed and is negative aside from as discussed in the subjective data in my own/the resident documentation. VS, labs, imaging reviewed NAD, AAO, resting comfortably in bed. RRR s1/2 no mgr Normal muscle tone, moves all 5 extremities with normal apparent strength Neck is supple, trachea midline, no vishal LN Lungs CTAB with sym expansion NT ND +BS no vishal organomegaly CN2-12 wnl; no FND NC AT EOMI PERRLA Normal mood, appropriate behavior, euthymic affect No skin breakdown or rashes noted Telemetry reviewed, no further issues. Echocardiogram reviewed; Echocardiogram shows LVEF normal with no regional wall motion abnormalities normal right ventricular systolic function mild left atrial dilation with mild MR and no pericardial effusion. ASSESSMENT AND PLAN: Patient with positive risk factors distilling upon him a moderate to high pretest probability for coronary artery disease, who presented with suspected unstable angina who symptoms were elicited upon further prompting to be likely secondary to a acute to subacute atypical chest pain presentation as opposed to a vishal acute coronary syndrome. Initially on AC as well as full dose antiplatelets, this was discontinued in favor of aspirin 81 and dose adjusted statin with respect to his ASCVD risk. He was found to have suboptimal glycemic control with A1c of 9.4 as well as hyperlipidemia with hypertriglyceridemia and hypo-HDL being the defining issues with his underlying lipid disorder. In addition he is obese with a BMI of 34. If his stress test is negative we will be able to discharge him home with cardiac follow-up, but this may be somewhat difficult proving his living situation once he leaves [place]. He is agreeable to this plan but states he may leave [place]. This is discussed above. Full code Problems include: -Acute chest pain, rule out ACS -Diabetes mellitus, uncontrolled with A1c 9.4%; would need twice daily metformin , pioglitazone, and sulfonylurea continued. May require insulin due to suboptimal control on home regimen. -Hypertension, controlled -Hyperlipidemia, triglycerides 194 with HDL low at 34. -Obesity, BMI 34, counseled prior to discharge Full code Disposition is pending the further cardiology testing with echo and nuclear stress test, once this is complete patient will be able to be discharged versus disposition for further procedures/invasive testing.
[2019-03-01 15:50] VITALS: BP 121/78; PULSE 83; TEMP 98.2
--- NOTE | 2019-03-01 16:27 | PN ---
Progress Note (short form) - Note Progress Note: s: still mild chest pain. no dyspnea, dizziness, orthopnea, edema Vital Signs Period Temp Pulse Resp BP Sys/Herron Pulse Ox Last 24 Hr 97.4 F-98.6 F 62-83 18-20 108-143/51-78 97-98 Constitutional: Yes: No Distress, Calm Eyes: Yes: Conjunctiva Clear, EOM Intact HENT: Yes: Atraumatic, Normocephalic Neck: Yes: Supple, Trachea Midline Respiratory: Yes: Regular, CTA Bilaterally Gastrointestinal: Yes: Normal Bowel Sounds, Soft Cardiovascular: Yes: Regular Rate and Rhythm JVD: No Carotid Bruit: No Heart Sounds: Yes: S1, S2 Extremities: No: Cold Edema: No Integumentary: No: Jaundice Neurological: Yes: Alert, Oriented Psychiatric: No: Agitated Assessment/Plan EKG 1: sinus tach, PVCs, no ischemic changes EKG 2 : sinus, nl intervals, no ischemic changes chest pain - EKG no ischemic changes, trop neg x 2 - less likely ACS, lovenox and clopidogrel dc'ed - continue aspirin, statin - echo and nuclear stress test unremarkable, no further inpatient cardiac workup at this point HTN - improving with home meds DM - manage per primary HLD - cont statin
--- NOTE | 2019-03-02 05:53 | DS ---
Physical Exam: SUBJECTIVE: Patient seen and examined in AM. No acute events overnight. Pt feeling great, not having any chest pain. OBJECTIVE: Vital Signs Period Temp Pulse Resp BP Sys/Herron Pulse Ox Last 24 Hr 97.8 F-98.2 F 72-83 18-20 108-121/51-78 98 PHYSICAL EXAM GENERAL: The patient is awake, alert, and fully oriented, in no acute distress. LUNGS: Breath sounds equal, clear to auscultation bilaterally, no wheezes, no crackles, no accessory muscle use. HEART: Regular rate and rhythm, S1, S2 without murmur, rub or gallop. ABDOMEN: Soft, nontender, nondistended, normoactive bowel sounds, no guarding, no rebound, no hepatosplenomegaly, no masses. EXTREMITIES: 2+ pulses, warm, well-perfused, no edema. NEUROLOGICAL: Cranial nerves II through XII grossly intact. Normal speech, gait not observed. SKIN: Warm, dry, normal turgor, no rashes or lesions noted. LABS Laboratory Results - last 24 hr 03/01/19 03/01/19 03/01/19 05:30 05:30 06:18 WBC 8.4 RBC 4.83 Hgb 15.1 Hct 43.6 MCV 90.1 MCH 31.2 MCHC 34.6 RDW 12.5 Plt Count 175 MPV 9.8 Sodium 136 Potassium 5.0 Chloride 101 Carbon Dioxide 30 Anion Gap 5 L BUN 14.6 Creatinine 0.7 Est GFR (CKD-EPI)AfAm 127.53 Est GFR (CKD-EPI)NonAf 110.04 POC Glucometer 236 Random Glucose 241 H Calcium 8.5 Total Bilirubin 0.5 AST 20 ALT 62 H Alkaline Phosphatase 90 Total Protein 6.4 Albumin 3.8 03/01/19 12:37 WBC RBC Hgb Hct MCV MCH MCHC RDW Plt Count MPV Sodium Potassium Chloride Carbon Dioxide Anion Gap BUN Creatinine Est GFR (CKD-EPI)AfAm Est GFR (CKD-EPI)NonAf POC Glucometer 307 Random Glucose Calcium Total Bilirubin AST ALT Alkaline Phosphatase Total Protein Albumin HOSPITAL COURSE: Date of Admission:02/27/19 Patient was admitted to r/o ACS. EKG showed no ischemic changes, trops were neg x 3 Pt's echo and nuclear stress test unremarkable, no further inpatient cardiac workup at this point was necessary. Pt was notified to continue aspirin, statin, as well as all other home medications as prescribed. Pt notified to follow up with cardiology in 1 week. Pt was also notified to follow up with his PCP. Pt notified to return to the ER if he has any worsening of his current symptoms or: chest pain, sob, abd pain, nausea, vomiting, bleeding. Date of Discharge: 03/02/19 Minutes to complete discharge: 35 Discharge Summary Problems reviewed: Yes Reason For Visit: CHEST PAIN Condition: Good - Instructions Diet, Activity, Other Instructions: You were admitted for chest pain. While you were here we did an echo (ultrasound ) of your heart as well as a stress test (nuclear imaging) which were found to be normal. You should follow up with cardiology in 1 week Follow up with your primary care doctor in 1 week Return to the ER if you have any worsening of your current symptoms or shortness of breath, weakness. Please continue all other home medications as prescribed. Start Lipitor 20mg once daily at night. Referrals: David Lr MD [Primary Care Provider] - 1 Week Disposition: HOME - Home Medications Comprehensive Discharge Medication List: Ambulatory Orders Amlodipine Besylate 5 mg PO DAILY 02/26/19 Glipizide [Glipizide ER] 5 mg PO DAILY 02/26/19 Metformin HCl [Glucophage] 1,000 mg PO BID 02/26/19 Pioglitazone HCl 15 mg PO DAILY 02/26/19 Sertraline HCl 50 mg PO DAILY 02/26/19 Valsartan 320 mg PO DAILY 02/26/19 Atorvastatin Ca [Lipitor] 20 mg PO HS #30 tablet 03/01/19 This patient is new to me today: Yes Date on this admission: 03/02/19 Emergency Visit: Yes ED Registration Date: 02/27/19 Care time: The patient presented to the Emergency Department on the above date and was hospitalized for further evaluation of their emergent condition. Critical Care patient: No - Discharge Referral Referred to [facility] Med [facility].: No ATTENDING PHYSICIAN STATEMENT I saw and evaluated the patient. I reviewed the resident's note and discussed the case with the resident. I agree with the resident's findings and plan as documented. SUBJECTIVE: OBJECTIVE: ASSESSMENT AND PLAN:
== END 2019-03-01 15:57 | disposition home or self-care (01) | DRG 203 ==
LOC: JER 18:24 → JERBED 02-27 00:53 → J4W 02-27 03:54 → OBSVTOIN 02-27 04:44
PROVIDERS: ADMIT Internal Medicine; ATTEND Internal Medicine
DX: R07.9 Chest pain, unspecified (principal); E11.65 Type 2 diabetes mellitus with hyperglycemia; E87.1 Hypo-osmolality and hyponatremia; E78.5 Hyperlipidemia, unspecified; Z87.891 Personal history of nicotine dependence; I10 Essential (primary) hypertension; F32.9 Major depressive disorder, single episode, unspecified; F41.9 Anxiety disorder, unspecified; Z79.84 Long term (current) use of oral hypoglycemic drugs; E66.9 Obesity, unspecified; Z68.34 Body mass index [BMI] 34.0-34.9, adult
CPT/HCPCS: 36415; 71046-TC-FY; 78452-TC; 80053; 80061; 82550; 82553; 82962; 83036; 83721; 83735; 83880; 84100; 84436; 84443; 84484; 85025; 85027; 85379; 85610; 85730; 90732; 93005; 93010; 93017; 93306-TC; 93970-TC; 99285-25; A9502; G0009; G0378; J2785; J7030